=== PATIENT | male | born 1990 | race Caucasian/White ===

== ENCOUNTER 2024-03-05 17:36 | Emergency (ER) | payer OTHER, SELFPAY ==
[2024-03-05 17:38] VITALS: BP 124/86
[2024-03-05] MEDS: MOTRIN 600 MG PO (19:21)
--- NOTE | 2024-03-05 19:32 | ED.GENMED ---
History of Present Illness
General
Chief Complaint: Musculo-Skeletal Complaint
Source: patient and spouse
Exam Limitations: none
Time Seen by Provider: 03/05/24 18:15
Nursing documentation reviewed up to this point in time: agreed with
History of Present Illness
History of Present Illness:
33-year-old male presenting to the emergency department after twisting his ankle 2 months ago some ongoing mild intermittent pain since. Denies significant redness or warmth denies any fevers denies any history of blood clots denies any chest pain.
Review of Systems
Review of Systems
Allergies reviewed?: Yes
All Other Systems: ROS reviewed and negative except as documented in HPI and ROS
Phy Exam
Physical Exam
Physical Exam:
GENERAL: Alert , in no apparent distress
EYE: pupils equal and reactive
NECK: Supple, no significant adenopathy.
ENT: o/p clr, mmm.
CARDIAC: Regular rate and rhythm .
LUNGS: Clear breath sounds bilaterally, no acute respiratory distress, no wheezes/rales/rhonchi
ABDOMEN: Soft, without focal tenderness, no r/g, no cvat
NEUROLOGICAL: Alert and oriented, no focal neuro deficits
SKIN: Warm and dry, skin intact.
MUSCULOSKELETAL: inversion. Mild tenderness palpation to the area anterior to the right-sided lateral malleolus increased discomfort withwell perfused.
PSYCH: Normal and appropriate interaction.
Course
Orders/Labs/Results
Orders:
Orders
03/05/24 17:46
Ankle, Right 3 view CR [CR Ankle - Right Min 3 Views *] Urgent
Comment:
Reason For Exam: pain and swelling from injury 2 month ago
03/05/24 19:20
Ibuprofen [Motrin] 600 mg .ROUTE .STK-MED ONE
03/05/24 19:21
Ibuprofen [Motrin] 600 mg PO NOW STA
Vital Signs
Initial and Last Documented VS:
Initial Vital Signs
Temp Pulse BP Pulse Ox
98.9 F 76 124/86 97
03/05/24 17:38 03/05/24 17:38 03/05/24 17:38 03/05/24 17:38
Last Documented Vital Signs
Temp Pulse BP Pulse Ox
98.9 F 76 124/86 97
03/05/24 17:38 03/05/24 17:38 03/05/24 17:38 03/05/24 17:38
MDM/Problems Addressed
MDM/Problems Addressed:
33-year-old male presenting to the department today with concerns of ongoing right-sided ankle discomfort over the past 2 months. Here x-ray was normal no signs of fracture patient with likely ongoing sprain symptoms. No symptoms of infection good
range of motion no redness or warmth no fevers. Patient was placed in an [place] bandage and advised for outpatient follow-up as needed. Return precautions given.
*Critical Care Note
Total Time (30-74mins, 75-104mins- exclusive of procedures): Not Applicable
ED Attending Note
-
Portions of this chart may have been created with voice recognition software.� Occasional wrong word or��sound alike� substitutions may have occurred due to the inherent limitations of voice recognition software.
Discharge Plan
Departure
Patient Disposition: Home (Routine Discharge)
Date of Disposition: 03/05/24
Time of Disposition: 19:34
Patient with high blood pressure during this ER visit?: No
Condition: Good
Covid-19: Not Applicable
Discharge Problem:
Ankle sprain
Instructions: Ankle Sprain ED
Prescriptions:
New
ibuprofen 600 mg tablet
600 mg PO Q6H PRN (Reason: Pain) Qty: 14 0RF
Referrals:
Cecilia Lubin, [Family Provider] -
Nicholas Woods DPM [Active] - Follow up in 10 days
Activity Restrictions/Additional Instructions:
You came to the emergency department today with concerns of an ankle sprain. Please follow-up closely as an outpatient and rest with hopeful improvement in symptoms. Return to the emergency department for any worsening, new or concerning symptoms.
Interventions
Interventions:
ED-Musculoskeletal Assessment Last Done: 03/05/24 18:23
Discharge Date and Time
Print Language: SYRIAN
== END 2024-03-05 20:00 | disposition home or self-care (01) ==
LOC: EMR 17:36
PROVIDERS: EMERGENCY PHYSICIAN Emergency Medicine; FAMILY PHYSICIAN Family Medicine
DX: S93.401A Sprain of unspecified ligament of right ankle, initial encounter (principal); X50.1XXA Overexertion from prolonged static or awkward postures, initial encounter
CPT/HCPCS: 99283; 73610